=== PATIENT | female | born 1985 | race Hispanic/Latino ===

== ENCOUNTER 2020-06-28 09:57 | Inpatient (IN) | payer SELFPAY ==
--- OUTSIDE RECORDS SUMMARY | 2020-06-28 10:00 | XMS REPORT | Continuity of Care Document ---
:1985 Author Organization [facility] t Address [address] [place] [address] Dr. Potts [address] [place] [id number] Care Team Providers Name Role Phone Unavailable Unavailable Unavailable Problems This patient has no known problems. Allergies, Adverse Reactions, Alerts This patient has no known allergies or adverse reactions. Medications This patient has no known medications. Procedures This patient has no known procedures. Results This patient has no known results.
[2020-06-28] MEDS ORDERED: CARBOPROST TROME 250 MCG/ML IM PRN (10:57)
[2020-06-28] MEDS ORDERED: BUTORPHANOL 1 MG/ML INJ IV PRN (10:57)
[2020-06-28] MEDS ORDERED: PROMETHAZINE INJ 25 MG/ML AMP IM PRN ×2 (10:57→11:01)
[2020-06-28] MEDS ORDERED: Ringers Lactate 1,000 ML IV PRN (10:57)
[2020-06-28] MEDS ORDERED: METHYLERGONOVINE 0.2MG/ML AMP IM PRN (10:57)
[2020-06-28] MEDS ORDERED: OXYTOCIN/LR 20 UNIT/1,000 ML BAG IV SCH ×2 (11:00→18:00)
[2020-06-28] MEDS ORDERED: Ringers Lactate 1,000 ML IV SCH (11:00)
[2020-06-28] MEDS ORDERED: OXYTOCIN/LR 20 UNIT/1,000 ML BAG IV ONE (11:04)
[2020-06-28 11:15] LABS: Absolute Lymphocytes (CBC) 1.8 K/uL (0.7-4.9); Basophils % 0.9 % (0-1.3); Hematocrit 42.1 % (36.0-45.0); Lymphocytes % 12.2 % (15.3-44.8); MPV 11.8 fL (7.6-11.3); RBC Red Blood Cell Count 4.68 M/uL (3.86-4.86)
[2020-06-28 11:16] LABS: Urine Appearance CLEAR; Urine Bilirubin NEGATIVE (NEG); Urine Blood NEGATIVE (NEG); Urine Color YELLOW; Urine Glucose NEGATIVE (NEG); Urine Protein NEGATIVE (NEG); Urine Specific Gravity 1.025 (1.005-1.030); Urine Urobilinogen 0.2 mg/dL (0.2-1.0); Urine pH 5.5 (5.0-7.0)
[2020-06-28 11:17] LABS: Urine Microscopic Reflex NO UMIC
[2020-06-28] MEDS ORDERED: 0.2% ROPIVACAINE (200 MG/100 ML) BAG EP ONE (12:24)
[2020-06-28] MEDS ORDERED: ROPIVACAINE HCL 20 ML ONE (12:48)
--- NOTE | 2020-06-28 12:53 | PN ---
The patient is now 6 cm, 90% effaced, vertex, -1 station, rupture of membranes, meconium staining, bu t no particulate matter. Light to medium darkness. Baby looks good on the monitor even after the St adol. The patient is trying to decide right now with her whether she wishes another dose of Stadol or wishes to proceed with epidural. I think we are getting ready to get into the active phase of labor. PARTHA/JAMES Voice ID: [id number] Report ID: [id number]
[2020-06-28] MEDS ORDERED: ROPIVACAINE HCL 0.2% 20ML AMP IV ONE (13:00)
[2020-06-28] MEDS ORDERED: FENTANYL CITR 100 MCG/2 ML IV ONE (13:00)
--- NOTE | 2020-06-28 15:14 | PN ---
The patient has her epidural, is more comfortable. She is 7 cm, but baby is still -1 station. We wi ll get her to do pelvic rocks and hopefully we will see more rapid progress soon. PARTHA/JAMES Voice ID: [id number] Report ID: [id number]
[2020-06-28 15:29] VITALS: BMI 35.2
[2020-06-28] MEDS ORDERED: LIDOCAINE 1% 20 ML MDV ONE (17:11)
[2020-06-28] MEDS ORDERED: LIDOCAINE 2% INJ, 20 mL 0 ML ONE (17:13)
[2020-06-28] MEDS ORDERED: DOCUSATE NA/SENNA CONC 1 TAB PO PRN (17:35)
[2020-06-28] MEDS ORDERED: DIPHENHYDRAMINE 25 MG TAB/CAP PO PRN (17:35)
[2020-06-28] MEDS ORDERED: BISACODYL 10 MG RECTAL SUPP PR PRN (17:35)
[2020-06-28] MEDS ORDERED: ACETAMINOPHEN 500 MG TAB PO PRN (17:35)
[2020-06-28] MEDS ORDERED: Oxycodone HCl/Acetaminophen 1 TAB TAB PO PRN ×2 (17:35)
[2020-06-28] MEDS: IBUPROFEN 600 MG TAB PO PRN (19:30)
[2020-06-29] MEDS: IBUPROFEN 600 MG TAB PO PRN ×3 (01:30→15:20)
[2020-06-29 01:45] LABS: RPR (Rapid Plasma Reagin) NON-REACT (NON-REACT)
--- NOTE | 2020-06-29 04:08 | OP ---
Surgeon: Matheus Hua MD 34-year-old primigravida, 38 weeks 5 days, came in, in active labor. Had Stadol IV, Phenergan IM, th en requested epidural anesthesia. Second stage of about 15 to 20 minutes. Spontaneous vaginal deliv kapil of a 6 pounds 8 ounces male infant, Apgars 9 and 9. Midline second-degree somewhat jagged lacera tion and two smaller first-degree lacerations, one to the left of the urethra and the other to the le ft of the introitus. All sutured with 2-0 chromic numerous stitches. Schultze delivery of the place nta, which is meconium stained but otherwise normal and intact. Estimated blood loss from the uterus thought to be 200 cc. There seemed to be quite a bit of fluid in the drape that was placed under th e patient's hips, but it was not apparent that there was that much bleeding from the lacerations. At this point, I would estimate total blood loss at 500 to 600 cc. Patient is quite stable, but we harmony l monitor closely. Final Diagnoses: Term intrauterine at 38 weeks 5 days, spontaneous labor. Rh positive, im mune to Rubella. Negative beta strep screen. Vaginal delivery. Light meconium staining. No suspic ion of aspiration. NBC/MODL Voice ID: [id number] Report ID: [id number]
[2020-06-29] MEDS ORDERED: Ringers Lactate 2,000 ML IV ONE (07:24)
--- NOTE | 2020-06-29 13:39 | PN ---
This morning, vital signs are all normal. The patient is ambulating without problems. Lochia is com pletely normal during the night according to the nurses. However, her hematocrit has dropped to 25. We will continue her IV, get her to ambulate again multiple times and get another fingerstick at janeen ch time. I do think her hematocrit should be lower than what she came in with, but the volume of blo od loss thus far I do not think reflects the hematocrit level. Nonetheless, we will continue to wat h that. I have informed the family and they know if the hematocrit falls less than 25 substantially, we might even consider blood transfusion. She knows she will need to take iron for the next couple of months to bring her blood count back up. She has only been taking Motrin for analgesia. She has no complaints or problems this morning. Her pulses have been in the 80 to 90 range, so we will edin nue to monitor the hematocrit very closely. PARTHA/JAMES Voice ID: [id number] Report ID: [id number]
--- NOTE | 2020-06-29 13:39 | PREOPHP ---
Date of Admission: 06/28/2020 History Of Present Illness: This is a 34-year-old, primigravida, 38 weeks 5 days, noted to be gestat ional diabetic in good control, scheduled for inductions on Monday of this week. Comes in active la bor, 4 to 4.5 cm, 70% effaced, baby still at -1 to -2 station. FHT is normal and reactive. The ashlee ent is Rh positive, immune to rubella, strep negative, pelvic status pending. She is serenity erma ry 4 to 5 minutes. We have started light Pitocin augmentation. Labor talk given. Anticipate delive ry sometime later today. Family History: Father with hypertension. Mother with diabetes. No other significant family histor y. Past Medical History: The patient has had no serious medical illnesses. Past Surgical History: She has had gallbladder surgery. Allergies: SHE HAS NO ALLERGIES. Medications: She has been taking vitamins prior to admission. Physical Examination: HEENT: Clear. Pupils equal, round, reactive to light and accommodation. Conjunctivae well perfused . No oral, lingual, or buccal lesions. Chest and Lungs: Clear. Heart: Without murmurs, thrills, heaves, or rubs on previous exams. Breasts: Not examined. Abdomen: Term size baby, vertex. Cervical exam as stated. Extremities: Clear without edema, cyanosis, or clubbing. Assessment And Plan: Admit for delivery. Full labor talk given. PARTHA/JAMES Voice ID: [id number]
[2020-06-29 17:04] VITALS: BP 122/66; TEMP 98.6
--- NOTE | 2020-06-30 08:22 | DS ---
Date of Discharge: 06/29/2020 This is a primigravida at 38 weeks and 5 days, scheduled for induction, came in for labor. During th e labor, received Stadol initially followed by epidural anesthesia. Fairly short second stage. Deli very with a term infant. Apgars 9 and 9. Noted to have a jagged midline, second-degree laceration a nd 2 small first-degree lacerations, all sutured with 2-0 chromic. Schultze delivery of the placenta . Estimated blood loss time from the observed bleeding was only 400 to 500 cc, possibly up to 600. However, the drape showed more than that. Apparently, patient bled more than expected or observed fr om her laceration. Hematocrit on admission was 42, fell to 25 and then pilar to 26 to 27. The patien t was stable at all times. Pulse in the 80 to 90 range. Ambulating without any type of problems. R h positive, immune to rubella, negative strep, negative COVID. Tdap and flu shots offered. No post epidural problems. The patient was subsequently dismissed to return to my office in 6 weeks for foll owup, to report any temperature elevation of 100 degrees or greater, severe pain, heavy bleeding, or any other type of abnormalities. Encouraged to take iron pills twice a day for the next 2 to 3 month s. Full instructions given. She knows to come to my office anytime before a 6-week checkup if she h as any trouble such as dizziness. Final Diagnosis: Term intrauterine . Vaginal delivery. Epidural anesthesia. Excessive bl ood loss from perineal laceration not requiring blood transfusion. PARTHA/JAMES Voice ID: [id number] Report ID: [id number]
--- NOTE | 2020-06-30 08:28 | DS ---
Date of Discharge: 06/29/2020 Addendum: The count number was correct [id number] but may have put the wrong name. The name should be Carrillo Boyd. PARTHA/JAMES Voice ID: [id number] Report ID: [id number]
[2020-06-30 18:08] LABS: HBsAG Nonreactive (Nonreactive)
== END 2020-06-29 19:10 | disposition home or self-care (01) | DRG 807 ==
LOC: L&D 09:57 → 2ND-WC 10:54
PROVIDERS: ADMIT Specialist; ATTEND Specialist
PROC: 10E0XZZ Delivery of Products of Conception, External Approach (ICD-10-PCS; principal; 2020-06-28)
PROC: 0KQM0ZZ Repair Perineum Muscle, Open Approach (ICD-10-PCS; 2020-06-28)
PROC: 0HQ9XZZ Repair Perineum Skin, External Approach (ICD-10-PCS; 2020-06-28)
DX: O24.419 Gestational diabetes mellitus in pregnancy, unspecified control (principal); Z37.0 Single live birth; O70.0 First degree perineal laceration during delivery; O70.1 Second degree perineal laceration during delivery; O77.0 Labor and delivery complicated by meconium in amniotic fluid; O46.93 Antepartum hemorrhage, unspecified, third trimester; Z3A.38 38 weeks gestation of pregnancy; Z67.90 Unspecified blood type, Rh positive; Z20.828 Contact with and (suspected) exposure to other viral communicable diseases
CPT/HCPCS: 36415; 81003; 85014; 85025; 86592; 86901; 87340; J0595; J2210; J2550; J2590; J2795; J3010; J7120; U0003

== ENCOUNTER 2020-07-03 10:50 | Emergency (ER) | payer SELFPAY ==
--- OUTSIDE RECORDS SUMMARY | 2020-07-03 10:57 | XMS REPORT | Continuity of Care Document ---
:1985 Author Organization [facility] t Address [address] [place] [address] Dr. Potts [address] [place] [address] Care Team Providers Name Role Phone Unavailable Unavailable Unavailable Problems This patient has no known problems. Allergies, Adverse Reactions, Alerts This patient has no known allergies or adverse reactions. Medications This patient has no known medications. Procedures This patient has no known procedures. Results This patient has no known results.
[2020-07-03 12:04] LABS: Absolute Lymphocytes (CBC) 1.7 K/uL (0.7-4.9); Basophils % 0.6 % (0-1.3); Hematocrit 25.1 % (36.0-45.0); Lymphocytes % 15.5 % (15.3-44.8); MPV 9.2 fL (7.6-11.3); RBC Red Blood Cell Count 2.75 M/uL (3.86-4.86)
[2020-07-03 12:15] LABS: BUN Blood Urea Nitrogen 10 mg/dL (7-18); Bicarbonate 26 mmol/L (21-32); Glucose Level 79 mg/dL (74-106); Potassium 3.7 mmol/L (3.5-5.1); Sodium Level 143 mmol/L (136-145)
--- NOTE | 2020-07-03 13:08 | EDPHYS ---
Physician Documentation [facility] Name: Kamini Boyd Age: 34 yrs Sex: Female : 1985 Arrival Date: 07/03/2020 Time: 10:53 Bed 2 Private MD: ED Physician Rachid Coats HPI: 07/03 15:54 This 34 yrs old Female presents to ER via Ambulatory with complaints of Blood kdr Transfusion. 15:54 The patient was sent by Dr. Hua for possible transfusion. She recently is kdr and per Dr. Hua, had a significant perineal laceration at the time of . She has subsequently had diminished Hgb - reported to have been 7._ at Dr. Pedro office. The patient reports feeling lightheaded when standing and moving. She has no other concerns at this time. Onset: The symptoms/episode began/occurred gradually, 2 week(s) ago. Severity of symptoms: At their worst the symptoms were mild just prior to arrival, this morning, in the emergency department the symptoms are unchanged. The patient has not experienced similar symptoms in the past. The patient has been recently seen by a physician: the patient's primary care provider, Dr. Hua. Historical: - Allergies: 11:05 No Known Allergies; ss - PMHx: 11:05 gestational diabetes; ss - PSHx: 11:05 Cholecystectomy; ss - Immunization history:: Adult Immunizations up to date. - Social history:: Smoking status: Patient denies any tobacco usage or history of. ROS: 15:54 Constitutional: Negative for fever, chills, and weight loss, Eyes: Negative for injury, kdr pain, redness, and discharge, Neck: Negative for injury, pain, and swelling, Cardiovascular: Negative for chest pain, palpitations, and edema, Respiratory: Negative for shortness of breath, cough, wheezing, and pleuritic chest pain, Abdomen/GI: Negative for abdominal pain, nausea, vomiting, diarrhea, and constipation, Back: Negative for injury and pain, : Negative for injury, bleeding, discharge, and swelling, MS/Extremity: Negative for injury and deformity, Skin: Negative for injury, rash, and discoloration, Psych: Negative for depression, anxiety, suicide ideation, homicidal ideation, and hallucinations, Allergy/Immunology: Negative for hives, rash, and allergies, Endocrine: Negative for neck swelling, polydipsia, polyuria, polyphagia, and marked weight changes, Hematologic/Lymphatic: Negative for swollen nodes, abnormal bleeding, and unusual bruising. 15:54 Neuro: Positive for dizziness, Negative for altered mental status, gait disturbance, headache, hearing loss, loss of consciousness, numbness, seizure activity, speech changes, syncope, near syncope, tingling, tinnitus, tremor, visual changes, weakness. Exam: 15:54 Constitutional: This is a well developed, well nourished patient who is awake, alert, kdr and in no acute distress. Head/Face: Normocephalic, atraumatic. Eyes: Pupils equal round and reactive to light, extra-ocular motions intact. Lids and lashes normal. Conjunctiva and sclera are non-icteric and not injected. Cornea within normal limits. Periorbital areas with no swelling, redness, or edema. Neck: Trachea midline, no thyromegaly or masses palpated, and no cervical lymphadenopathy. Supple, full range of motion without nuchal rigidity, or vertebral point tenderness. No Meningismus. Chest/axilla: Normal chest wall appearance and motion. Nontender with no deformity. No lesions are appreciated. Cardiovascular: Regular rate and rhythm with a normal S1 and S2. No gallops, murmurs, or rubs. Normal PMI, no JVD. No pulse deficits. Respiratory: Lungs have equal breath sounds bilaterally, clear to auscultation and percussion. No rales, rhonchi or wheezes noted. No increased work of breathing, no retractions or nasal flaring. Abdomen/GI: Soft, non-tender, with normal bowel sounds. No distension or tympany. No guarding or rebound. No evidence of tenderness throughout. Back: No spinal tenderness. No costovertebral tenderness. Full range of motion. Skin: Warm, dry with normal turgor. Normal color with no rashes, no lesions, and no evidence of cellulitis. MS/ Extremity: Pulses equal, no cyanosis. Neurovascular intact. Full, normal range of motion. Neuro: Awake and alert, GCS 15, oriented to person, place, time, and situation. Cranial nerves II-XII grossly intact. Motor strength 5/5 in all extremities. Sensory grossly intact. Cerebellar exam normal. Normal gait. Psych: Awake, alert, with orientation to person, place and time. Behavior, mood, and affect are within normal limits. Vital Signs: 11:02 BP 146 / 84; Pulse 98; Resp 18; Temp 98.4(TE); Pulse Ox 100% on R/A; Weight 96.62 kg; ss Height 5 ft. 5 in. (165.10 cm); Pain 0/10; 12:35 BP 130 / 71; Pulse 87; Resp 15; Pulse Ox 99% on R/A; hb 12:50 BP 130 / 71; Pulse 86; Resp 20; Pulse Ox 99% on R/A; em 12:55 BP 127 / 75; Pulse 89; em 11:02 Body Mass Index 35.44 (96.62 kg, 165.10 cm) ss MDM: 13:08 Patient medically screened. kdr 15:54 Data reviewed: vital signs, nurses notes, lab test result(s). Counseling: I had a kdr detailed discussion with the patient and/or guardian regarding: the historical points, exam findings, and any diagnostic results supporting the discharge/admit diagnosis, lab results, the need for outpatient follow up. 15:54 ED course: D/w Dr. Oneill - since Hgb grater than 8.0 will not transfuse at this time.. kdr 07/03 10:54 Order name: CBC with Diff; Complete Time: 12:54 kdr 07/03 10:54 Order name: Chem 7; Complete Time: 12:54 kdr 07/03 10:54 Order name: PT-INR; Complete Time: 12:54 kdr 07/03 10:54 Order name: Type And Screen; Complete Time: 12:54 kdr Administered Medications: No medications were administered Disposition: 07/03/20 13:08 Discharged to Home. Impression: Anemia, unspecified, Weakness, Dizziness and giddiness. - Condition is Stable. - Discharge Instructions: Anemia, Nonspecific, Weakness, [id number], Dizziness, [id number]. - Medication Reconciliation Form, Thank You Letter form. - Follow up: Private Physician; When: 2 - 3 days; Reason: If symptoms return, Further diagnostic work-up, Recheck today's complaints, Continuance of care, Re-evaluation by your physician. - Problem is new. - Symptoms have improved. Signatures: Dispatcher [employer] EDMS Rachid Coats MD MD kdr Cassie Haro, EVELYN RN ss Caryl Montiel Corrections: (The following items were deleted from the chart) 13:24 13:08 07/03/2020 13:08 Discharged to Home. Impression: Anemia, unspecified; Weakness; eb Dizziness and giddiness. Condition is Stable. Forms are Medication Reconciliation Form, Thank You Letter, Antibiotic Education, Prescription Opioid Use. Follow up: Private Physician; When: 2 - 3 days; Reason: If symptoms return, Further diagnostic work-up, Recheck today's complaints, Continuance of care, Re-evaluation by your physician. Problem is new. Symptoms have improved. kdr
--- NOTE | 2020-07-03 13:08 | ER ---
Nurse's Notes [facility] Name: Kamini Boyd Age: 34 yrs Sex: Female : 1985 Arrival Date: 07/03/2020 Time: 10:53 Bed 2 Private MD: Diagnosis: Anemia, unspecified;Weakness;Dizziness and giddiness Presentation: 07/03 11:02 Chief complaint: Patient states: Sent by Dr. Hua for low HGB. Pt reports vaginal ss bleeding after delivery that has stopped. Pt c/o intermittent dizziness and palpitations. Coronavirus screen: Client denies travel out of the [place] in the last 14 days. Ebola Screen: Patient denies exposure to infectious person. Patient denies travel to an Ebola-affected area in the 21 days before illness onset. Initial Sepsis Screen: Does the patient meet any 2 criteria? No. Patient's initial sepsis screen is negative. Does the patient have a suspected source of infection? No. Patient's initial sepsis screen is negative. Risk Assessment: Do you want to hurt yourself or someone else? Patient reports no desire to harm self or others. Onset of symptoms was June 28, 2020. 11:02 Method Of Arrival: Ambulatory ss 11:02 Acuity: HAO 3 ss Historical: - Allergies: 11:05 No Known Allergies; ss - PMHx: 11:05 gestational diabetes; ss - PSHx: 11:05 Cholecystectomy; ss - Immunization history:: Adult Immunizations up to date. - Social history:: Smoking status: Patient denies any tobacco usage or history of. Screenin:54 Abuse screen: Denies threats or abuse. Denies injuries from another. Nutritional hb screening: No deficits noted. Tuberculosis screening: No symptoms or risk factors identified. Fall Risk None identified. Assessment: 11:20 General: Appears in no apparent distress. Behavior is calm, cooperative. Pain: Denies hb pain. Neuro: Level of Consciousness is awake, alert, obeys commands, Oriented to person, place, time, situation. Cardiovascular: Capillary refill < 3 seconds Patient's skin is warm and dry. Respiratory: Respiratory effort is even, unlabored, Respiratory pattern is regular, symmetrical. GI: No signs and/or symptoms were reported involving the gastrointestinal system. : No signs and/or symptoms were reported regarding the genitourinary system. EENT: No signs and/or symptoms were reported regarding the EENT system. Derm: Skin is pink, warm \T\ dry. Musculoskeletal: No signs and/or symptoms reported regarding the musculoskeletal system. 12:30 Reassessment: Patient appears in no apparent distress at this time. No changes from previously documented assessment. Patient and/or family updated on plan of care and expected duration. Pain level reassessed. Patient is alert, oriented x 3, equal unlabored respirations, skin warm/dry/pink. 12:55 Reassessment: pt ambulated for about 1 minute and rechecked VS, reports mild dizziness em when ambulating, Dr. Coats notified. Vital Signs: 11:02 BP 146 / 84; Pulse 98; Resp 18; Temp 98.4(TE); Pulse Ox 100% on R/A; Weight 96.62 kg; ss Height 5 ft. 5 in. (165.10 cm); Pain 0/10; 12:35 BP 130 / 71; Pulse 87; Resp 15; Pulse Ox 99% on R/A; hb 12:50 BP 130 / 71; Pulse 86; Resp 20; Pulse Ox 99% on R/A; em 12:55 BP 127 / 75; Pulse 89; em 11:02 Body Mass Index 35.44 (96.62 kg, 165.10 cm) ED Course: 10:53 Patient arrived in ED. mr 10:54 Rachid Coats MD is Attending Physician. kdr 11:05 Triage completed. ss 11:05 Michele Alva, RN is Primary Nurse. em 11:05 Arm band placed on right wrist. ss 11:54 Patient has correct armband on for positive identification. Placed in gown. Bed in low hb position. 11:54 Inserted saline lock: 20 gauge in right antecubital area, using aseptic technique. ss Blood collected. Administered Medications: No medications were administered Outcome: 13:08 Discharge ordered by . kdr 13:24 Patient left the ED. eb Signatures: Rachid Coats MD MD kdr Rivera, Mary mr Michele Alva, RN EVELYN Cassie Haro RN RN Kylee Evangelista RN RN Caryl Montiel
[2020-07-03 13:53] VITALS: TEMP 98.4
[2020-07-03 13:54] VITALS: O2SAT 99
[2020-07-03 13:57] VITALS: BP 127/75
== END 2020-07-03 13:24 | disposition home or self-care (01) ==
LOC: ER 10:50
DX: O90.81 Anemia of the puerperium (principal); D64.9 Anemia, unspecified; R53.1 Weakness
CPT/HCPCS: 36415; 80048; 85025; 85610; 86850; 86900; 86901; 99283